=== PATIENT | female | born 1935 ===

== ENCOUNTER 2024-06-30 05:53 | Emergency (ER) | payer OTHER ==
[~2024-06-30] VITALS: Ht 167.6 cm; Wt 70.3 kg
[2024-06-30 06:19] VITALS: O2SAT 100
[2024-06-30] MEDS ORDERED: METFORMIN HCL500 M4 PO (06:20)
[2024-06-30] MEDS ORDERED: SYNTHROID50 MCG PO (06:20)
[2024-06-30] MEDS ORDERED: ATORVASTATIN CA20 MG PO (06:20)
[2024-06-30] MEDS ORDERED: DONEPEZIL HCL5 MG PO (06:20)
[2024-06-30 06:31] VITALS: BP 90/60
[2024-06-30 08:02] LABS: HEMATOCRIT 38.6 % (36.0-45.00); HEMOGLOBIN 13.2 g/dL (12.0-15.00); MEAN CELL VOLUME 86.6 fL (80.00-100.00); MEAN CORPUSCULAR HEMOGLOBIN 29.7 pg (27.00-32.0); MEAN CORPUSCULAR HGB CONC 34.3 g/dl (32.0-36.0); RED BLOOD COUNT 4.46 M/uL (4.00-6.00); RED CELL DISTRIBUTION WIDTH 13.7 % (11.5-14.5)
[2024-06-30 08:07] LABS: PLATELET COUNT 82 K/uL (150-450)
[2024-06-30 08:40] LABS: INR 1.01; PARTIAL THROMBOPLASTIN TIME 27.6 SECONDS (22.0-34.0)
[2024-06-30 09:09] LABS: ALBUMIN 3.3 gm/dL (3.4-5.0); BILIRUBIN TOTAL 0.32 mg/dL (0.3-1.2); CALCIUM 8.7 mg/dL (8.5-10.1); CREATININE SERUM 1.23 mg/dL (0.55-1.02); GFR 41.3; GLOBULINA 3.6 G/DL (2.4-3.5); POTASSIUM 4.02 mEq/L (3.5-5.1); TOTAL PROTEIN 6.9 gm/dL (6.4-8.2)
[2024-06-30 12:27] LABS: ABG PH 7.427 (7.35-7.45); ABG PO2 87.8 mmHg (80-100); ABG pCO2 34.6 mmHg (35-45); BASE EXCESS -1.4 mmol/l; BICARBONATE 22.3 mmol/l (23-25); SaO2 96.9 %; Tco2 23.3 mmol/l
[2024-06-30 12:28] LABS: allen test SATISFACTORY; o2 21 %; puncture site RADIAL RIGHT
[2024-06-30 14:12] LABS: URINE APPEARANCE Clear; URINE BILIRRUBIN Negative (NEGATIVE); URINE BLOOD Trace; URINE COLOR Yellow; URINE GLUCOSE Negative (NEGATIVE); URINE KETONE Negative (NEGATIVE); URINE LEUKOCYTE Negative; URINE NITRATE Negative
[2024-06-30 14:17] LABS: URINE BACTERIA 193.3 uL (0.0-1933); URINE EPITHELIAL CELLS 14.5 uL (0.0-38.8); URINE RBC 6.7 uL (0.0-20.8); URINE WBC 5.3 uL (0.0-23.2)
[2024-06-30 14:40] LABS: URINE CAST 0.58 uL (0.0-1.40); URINE PROTEIN 300 (NEGATIVE)
== END 2024-06-30 15:54 | disposition home or self-care (01) ==
LOC: ER 05:53
PROVIDERS: General Practice; Internal Medicine
DX: R55 Syncope and collapse (principal); M25.551 Pain in right hip; M25.552 Pain in left hip; R53.1 Weakness; Z20.822 Contact with and (suspected) exposure to COVID-19; I10 Essential (primary) hypertension; E11.9 Type 2 diabetes mellitus without complications; Z79.84 Long term (current) use of oral hypoglycemic drugs; Z91.013 Allergy to seafood